=== PATIENT | male | born 1985 | race Caucasian/White ===

== ENCOUNTER 2019-03-08 12:06 | Emergency (ER) | payer OTHER ==
[~2019-03-08] VITALS: Ht 165.1 cm; Wt 74.8 kg
== END 2019-03-08 13:11 | disposition home or self-care (01) ==
LOC: ER 12:06
DX: S61.422A Laceration with foreign body of left hand, initial encounter (principal); W26.0XXA Contact with knife, initial encounter; Y93.89 Activity, other specified; Y92.098 Other place in other non-institutional residence as the place of occurrence of the external cause; Y99.8 Other external cause status

== ENCOUNTER 2019-03-16 18:59 | Emergency (ER) | payer OTHER ==
[~2019-03-16] VITALS: Ht 165.1 cm; Wt 79.4 kg
== END 2019-03-16 21:07 | disposition home or self-care (01) ==
LOC: ER 18:59
DX: Z48.02 Encounter for removal of sutures (principal)